=== PATIENT | female | born 2000 | race Caucasian/White ===

== ENCOUNTER 2022-07-21 21:49 | Emergency (ER) | payer OTHER ==
[~2022-07-21] VITALS: Ht 149.9 cm; Wt 36.4 kg
[2022-07-21 21:58] VITALS: TEMP 97.9
[2022-07-21 22:52] LABS: BASO # 0.1 K/mm3 (0.0-0.2); BASO % 0.7 % (0.0-2.0); EOS # 0.5 K/mm3 (0.0-0.7); EOS % 6.6 % (0.0-4.0); GRAN % 51.7 % (42.2-75.2); HEMATOCRIT 41.3 % (35.0-45.0); HEMOGLOBIN 13.8 g/dl (12.0-15.0); LYMPH # 2.6 K/mm3 (1.2-3.4); LYMPH % 33.8 % (20.0-51.0); MEAN CELL VOLUME 92 fl (80.0-95.0); MEAN CORPUSCULAR HEMOGLOBIN 31 pg (26-32); MEAN CORPUSCULAR HGB CONC 33 g/dl (33.0-37.0); MEAN PLATELET VOLUME 10.3 fl (7.4-10.4); MONO # 0.5 K/mm3 (0.1-0.6); MONO % 6.9 % (1.7-9.3); PLATELET COUNT 303 K/mm3 (130-400); REDCELL DISTRIBUTION WIDTH-CV 13.2 % (11.5-14.5)
[2022-07-21 23:24] LABS: BILIRUBIN,TOTAL 0.2 mg/dL (0.2-1.2); CALCIUM 9.3 mg/dL (8.4-10.2); CREATININE, serum 0.76 mg/dL (0.57-1.11); POTASSIUM 3.4 mmol/L (3.5-4.5); TOTAL PROTEIN 6.9 gm/dL (6.2-8.1)
[2022-07-22 00:21] VITALS: BP 109/72; PULSE 79
== END 2022-07-22 00:22 | disposition home or self-care (01) ==
LOC: COL.ER 21:49
PROVIDERS: Personal Emergency Response Attendant
DX: R42 Dizziness and giddiness (principal); R00.2 Palpitations; E87.1 Hypo-osmolality and hyponatremia
CPT/HCPCS: J7030

== ENCOUNTER 2023-10-07 12:54 | Emergency (ER) | payer OTHER ==
[~2023-10-07] VITALS: Ht 149.9 cm; Wt 38.6 kg
[~2023-10-07 12:54] MED LIST: ZOFRAN ODT4 MG PO
[2023-10-07 13:08] VITALS: TEMP 97.9
[2023-10-07] MEDS ORDERED: LR 1,000 ML IV ONE (15:30)
[2023-10-07] MEDS ORDERED: Acetaminophen 500 MG TAB PO ONE (15:30)
[2023-10-07] MEDS ORDERED: Ondansetron 4 MG/2 ML VIAL IV ONE (15:30)
[2023-10-07 15:47] LABS: COLLECTION METHOD CLEAN CATCH
[2023-10-07 15:56] LABS: BASO % 0.3 % (0.0-2.0); EOS % 0.1 % (0.0-4.0); GRAN # 8.5 K/mm3 (1.4-6.5); GRAN % 83.9 % (42.2-75.2); HEMATOCRIT 43.6 % (37.0-47.0); HEMOGLOBIN 14.3 g/dl (12.5-16.0); LYMPH # 1.3 K/mm3 (1.2-3.4); LYMPH % 12.3 % (20.0-51.0); MEAN CELL VOLUME 93 fl (80.0-100.0); MEAN CORPUSCULAR HEMOGLOBIN 30 pg (27-31); MEAN CORPUSCULAR HGB CONC 33 g/dl (33.0-37.0); MEAN PLATELET VOLUME 10.3 fl (7.4-10.4); MONO # 0.3 K/mm3 (0.1-0.6); PLATELET COUNT 309 K/mm3 (130-400); REDCELL DISTRIBUTION WIDTH-CV 12.8 % (11.5-14.5)
[2023-10-07 16:13] LABS: ALBUMIN 4.5 g/dL (3.5-5.0); BILIRUBIN,TOTAL 0.5 mg/dL (0.2-1.2); CALCIUM 10.2 mg/dL (8.4-10.2); CREATININE, serum 0.76 mg/dL (0.57-1.11); TOTAL PROTEIN 7.7 g/dl (6.2-8.1); URINE APPEARANCE CLEAR (CLEAR/HAZY); URINE BLOOD 2+ (NEGATIVE); URINE COLOR YELLOW (YELLOW); URINE GLUCOSE NEGATIVE (NEGATIVE); URINE KETONE 1+ (NEGATIVE); URINE NITRATE NEGATIVE (NEGATIVE); URINE PROTEIN(semi-quant) NEGATIVE (NEGATIVE); URINE UROBILINOGEN 0.2 E.U/dL (0.2-1.0)
[2023-10-07] MEDS ORDERED: Ketorolac 15 MG/ML VIAL IV ONE (18:30)
[2023-10-07 18:40] VITALS: BP 107/63; PULSE 71
== END 2023-10-07 18:40 | disposition home or self-care (01) ==
LOC: COL.ER 12:54
PROVIDERS: Emergency Medicine
DX: N94.6 Dysmenorrhea, unspecified (principal)
CPT/HCPCS: J1885; J2405; J7120